=== PATIENT | male | born 1980 | race African-American/Black ===

== ENCOUNTER 2019-03-18 07:07 | Emergency (ER) | payer OTHER ==
[~2019-03-18] VITALS: Ht 172.7 cm; Wt 86.4 kg
[2019-03-18 07:15] VITALS: BP 118/75
[2019-03-18] MEDS ORDERED: ZOFRAN 4MG T4 MG/TAB PO (08:08)
[2019-03-18 09:14] VITALS: PULSE 85; TEMP 98.3
== END 2019-03-18 09:14 | disposition home or self-care (01) ==
LOC: COL.ER 07:07
DX: R19.7 Diarrhea, unspecified (principal); R11.0 Nausea

== ENCOUNTER 2019-09-18 16:30 | Emergency (ER) | payer OTHER ==
[~2019-09-18] VITALS: Ht 172.7 cm; Wt 88.6 kg
[~2019-09-18 16:30] MED LIST: ZOFRAN 4MG T4 MG/TAB PO
[2019-09-18 16:52] VITALS: TEMP 98.1
[2019-09-18 19:58] LABS: BASO % 0.4 % (0.0-2.0); EOS # 0.3 (0.0-0.7); EOS % 4.1 % (0-4.0); GRAN # 3.9 (1.4-6.5); HEMATOCRIT 47.7 % (42.0-52.0); HEMOGLOBIN 15.5 g/dl (13.5-18.0); LYMPH # 2.4 (1.2-3.4); LYMPH % 32.4 % (20.0-51.0); MEAN CELL VOLUME 88 fl (80.0-100.0); MEAN CORPUSCULAR HEMOGLOBIN 29 pg (27.0-31.0); MEAN CORPUSCULAR HGB CONC 33 g/dl (33.0-37.0); MONO # 0.7 (0.1-0.6); MONO % 9.8 % (1.7-9.3); PLATELET COUNT 238 K/mm3 (130-400); RED BLOOD COUNT 5.41 M/mm3 (4.20-5.60); REDCELL DISTRIBUTION WIDTH-CV 12.7 % (11.5-14.5)
[2019-09-18 20:09] LABS: ALANINE AMINOTRANSFERASE 20 U/L (4-49); ALBUMIN 4.8 gm/dL (3.5-5.0); ALKALINE PHOSPHATASE 105 U/L (50-136); ANION GAP 9 mmol/L (7-16); AST,SGOT 29 U/L (15-37); BILIRUBIN,TOTAL 0.5 mg/dL (0.0-1.0); BLOOD UREA NITROGEN 22 mg/dL (9-20); CALCIUM 9.5 mg/dL (8.4-10.2); CARBON DIOXIDE 25 mmol/L (22-30); CHLORIDE 104 mmol/L (98-107); CREATININE, serum 1.06 (0.66-1.25); GLUCOSE 95 mg/dL (74-106); POTASSIUM 4.2 mmol/L (3.4-5.0); SODIUM 138 mmol/L (137-145); TOTAL PROTEIN 9.1 gm/dL (6.4-8.2)
[2019-09-18 20:22] LABS: TROPONIN-I < 0.012 ng/mL (0.000-0.035)
[2019-09-18 20:25] LABS: INR 1.2 (0.8-3.0); PROTHROMBIN TIME 13.4 SECONDS (9.7-12.8)
[2019-09-18 20:55] VITALS: BP 122/80; PULSE 81
== END 2019-09-18 20:56 | disposition home or self-care (01) ==
LOC: COL.ER 16:30
PROVIDERS: Family Medicine
DX: R07.89 Other chest pain (principal); R06.02 Shortness of breath